=== PATIENT | male | born 1985 | race Caucasian/White ===

== ENCOUNTER 2024-08-14 18:00 | Emergency (ER) | payer SELFPAY ==
[~2024-08-14] VITALS: Ht 165.1 cm; Wt 68.0 kg
[2024-08-14 18:07] VITALS: O2SAT 100
[2024-08-14] MEDS: LIDOCAINE HCL/PF 1% 10 MG/ML 5ML VIAL INFIL ONE (19:15)
[2024-08-14] MEDS: BACITRACIN ZINC OINT UDPKT TOP ONE (19:15)
[2024-08-14] MEDS: TETANUS, DIPHTHERIA, PERTUSSIS VAC/PF 0.5ML (>10YR OLD) IM ONE (19:30)
[2024-08-14] MEDS ORDERED: BO1 TP (21:55)
[2024-08-14] MEDS ORDERED: IBUP-2028 MT (21:55)
[2024-08-14 22:17] VITALS: BP 117/66; PULSE 67; RESP 16; TEMP 36.6; O2SAT 100
== END 2024-08-14 22:27 | disposition home or self-care (01) ==
LOC: ER 18:00
DX: S31.119A Laceration without foreign body of abdominal wall, unspecified quadrant without penetration into peritoneal cavity, initial encounter (principal); S70.12XA Contusion of left thigh, initial encounter; Z79.899 Other long term (current) drug therapy; X58.XXXA Exposure to other specified factors, initial encounter; Y93.89 Activity, other specified; Y92.89 Other specified places as the place of occurrence of the external cause; Y99.8 Other external cause status
CPT/HCPCS: 73502; 73552; 90715; 12002; 90471; 99284; J2003; Z7610